=== PATIENT | female | born 1950 | race Hispanic/Latino ===

== ENCOUNTER 2019-02-10 04:04 | Inpatient (IN) | payer MEDICARE, MEDICAID ==
[~2019-02-10] VITALS: Ht 170.2 cm; Wt 85.0 kg
[~2019-02-10 04:04] MED LIST: ATIVAN2 MG ORAL; PHENERGAN25 M1 ORAL
[2019-02-10] MEDS ORDERED: Solu-MEDROL 125mg Inj IVP ONE (04:15)
[2019-02-10] MEDS: Ipratropium 0.02% Inh Soln 2.5ml UD HHN SCH ×2 (04:20→04:36)
[2019-02-10] MEDS: Albuterol ud Inhalation HHN SCH ×2 (04:20→04:36)
[2019-02-10 04:36] VITALS: BP 107/76
--- NOTE | 2019-02-10 04:39 | NUR ---
ED Nurse Note: Emily NIEVES from home with complaints of being found on the [place]gers by in respiratory distress. patient arrived on no rebreather. and was placed on BIpap upon arrival. Settiings: 15 back up at 16 on 50% FiO2. Labs drawn via line started by LAFD at right AC 20G. NS fluid running wide open. Vital signs stable. will continue to monitor.
[2019-02-10 04:41] LABS: BASOPHILS % (AUTO) 1.1 % (0.0-2.0); EOSINOPHILS % (AUTO) 1.6 % (0.0-3.0); HEMATOCRIT 47.3 % (37.0-47.0); LYMPHOCYTES % (AUTO) 49.3 % (20.0-45.0); MEAN CORPUSCULAR VOLUME 90 FL (80-99); MONOCYTES % (AUTO) 3.8 % (1.0-10.0); NEUTROPHILS % (AUTO) 44.3 % (45.0-75.0); PLATELET COUNT 181 K/UL (150-450); RED BLOOD COUNT 5.25 M/UL (4.20-5.40); RED CELL DISTRIBUTION WIDTH 13.3 % (11.6-14.8); WHITE BLOOD COUNT 9.9 K/UL (4.8-10.8)
[2019-02-10 04:54] LABS: ANION GAP 15 mmol/L (5-15); BLOOD UREA NITROGEN 25 mg/dL (7-18); CALCIUM 9.1 MG/DL (8.5-10.1); CARBON DIOXIDE 21 MMOL/L (21-32); CHLORIDE 109 MMOL/L (98-107); CREATININE 1.5 MG/DL (0.55-1.30); POTASSIUM 3.5 MMOL/L (3.5-5.1); SODIUM 145 MMOL/L (136-145)
--- NOTE | 2019-02-10 05:00 | NUR ---
ED Nurse Note: Patient was taken off BIpap per request.
[2019-02-10 05:20] LABS: ALANINE AMINOTRANSFERASE 20 U/L (12-78); ALBUMIN/GLOBULIN RATIO 0.9 (1.0-2.7); ALKALINE PHOSPHATASE 101 U/L (46-116); ASPARTATE AMINO TRANSFERASE 37 U/L (15-37); BILIRUBIN,TOTAL 0.2 MG/DL (0.2-1.0); CKMB 10.2 NG/ML (0.0-3.6); CREATINE KINASE 135 U/L (26-308)
--- NOTE | 2019-02-10 05:26 | NUR ---
ED Nurse Note: Patient began to get upset regarding lab findings. Patient desaturated to 81% and was re-placed on BiPAP.
[2019-02-10] MEDS ORDERED: Heparin 25,000u/D5W 500ml 500 ML IV SCH ×2 (06:00→08:55)
[2019-02-10] MEDS ORDERED: Heparin 5000 units/ml inj IV ONE (06:00)
--- NOTE | 2019-02-10 06:10 | NUR ---
ED Nurse Note: Patient exhibited sign of bradycardia and became symptomatic. Code called at 0611 and compressions started, pulse was 36 and last BP was 98/72. First epi was pushed at 0618 while patient was being bagged respirated. Patient was intubated at 0622. Atropine was given at 0618 and another round of epi was given at 0619. Compressions stopped at 0620 because of return of pulse at 93. Alternative line started at left AC 20G . ROSC achieved and fluids resumed. vital signs recorded. Code fully documented.
--- NOTE | 2019-02-10 06:12 | NUR ---
RESPIRATORY NOTE: Patient coded at 0612, assisted with providing rescue breaths with ambubag. Assisted with intubation shortly after. 7.5 ETT, 23 cm at the lip, and secured with anchorfast. Pt was then placed on ventilator with settings AC/VC 16, VT 500, PEEP +5, 50% FiO2. Pt began to desaturate, increased FiO2 to 70%. Vent was plugged in red outlet. Alarms on and audible. Will continue to monitor pt progress.
[2019-02-10 06:23] VITALS: BP_SYST 151; BP_SYST 158; BP_DIAS 108; BP_DIAS 112
--- NOTE | 2019-02-10 06:27 | Emergency Room Report ---
History of Present Illness General Chief Complaint: Dyspnea/Respdistress Source: EMS (Fitz Goyal MD) Present Illness HPI 68-year-old female presents ED for evaluation. Brought in by EMS for respiratory distress. called 911 because patient appears short of breath tonight. Per EMS patient had crackles in both lungs and was hypoxic. Was started on CPAP. Patient unable to provide any history at this time. is a poor historian. No known medical problems or medications. No reported chest pain or fever. No other aggravating relieving factors. No other associated symptoms. (Fitz Goyal MD) Allergies: Coded Allergies: UNABLE TO ASSESS (Unverified , 02/10/19) Patient History Past Medical History: psych hx Past Surgical History: none Pertinent Family History: none Social History: Denies: smoking, alcohol use, drug use Now: No Immunizations: UTD Reviewed Nursing Documentation: PMH: Agreed; PSxH: Agreed (Fitz Goyal MD) Nursing Documentation-PMH Past Medical History: Deferred Hx Neurological Problems: Yes (Fitz Goyal MD) Review of Systems All Other Systems: limited (Fitz Goyal MD) Physical Exam Vital Signs Date Time Temp Pulse Resp B/P (MAP) Pulse Ox O2 Delivery O2 Flow Rate FiO2 02/10/19 03:58 97.5 135 22 100 Bi-pap 02/10/19 04:01 50 02/10/19 04:36 107/76 Sp02 EP Interpretation: reviewed, normal General Appearance: GCS 15, non-toxic, moderate distress, lethargic Head: normocephalic, atraumatic Eyes: bilateral eye normal inspection, bilateral eye PERRL ENT: hearing grossly normal, normal pharynx, no angioedema, normal voice Neck: full range of motion, supple/symm/no masses Respiratory: chest non-tender, accessory muscle use, crackles, wheezing Cardiovascular #1: no edema, tachycardia Cardiovascular #2: 2+ carotid (R), 2+ carotid (L), 2+ radial (R), 2+ radial (L) , 2+ dorsalis pedis (R), 2+ dorsalis pedis (L) Gastrointestinal: normal bowel sounds, non tender, soft, non-distended, no guarding, no rebound Rectal: deferred Genitourinary: normal inspection, no CVA tenderness Musculoskeletal: back normal, gait/station normal, normal range of motion, non- tender Neurologic: other - lethargic Psychiatric: other - lethargic Reflexes: 3+ bicep (R), 3+ bicep (L), 3+ tricep (R), 3+ tricep (L), 3+ knee (R) , 3+ knee (L) Skin: normal color, no rash, warm/dry, well hydrated Lymphatic: no adenopathy (Fitz Goyal MD) Procedures Critical Care Time Critical Care Time i. I feel this is a highly complex case requiring extensive working including EKG/Rhythm strip, Xray/CT/US, Blood/urine lab work, repeat exams while in ED, and administration of strong opiates/narcotics for pain control, admission to hospital or close patient follow up. Total time: 60 min bedside evaluation and treatment excludes procedures (EKG). Reason for critical care: hypoxia. pulmonary edema. high lactic acid. elevated troponin Possible complications: hypotension, hypertension, MN, shock, arrhythmias, metabolic acidosis, end organ damage, respiratory failure. Interventions: labs, IVFS, EKG, CXR, BIPAP, nebs, ABG. antibiotics. heparin. aspirin. Course: Patient presenting in respiratory distress. Started on BiPAP been nebs. Chest x-ray shows pulmonary edema. Lactic acid 7.9. No white count. No fever. Troponin 1.9. Patient denies chest pain. EKG shows sinus tachycardia. no ST elevations. patient took off her BIAP stating she has chest pain. before repeat EKG patient lost pulse. compressions started. patient intubated. after epinephrine patient regained pulse. repeat EKG shows no ST elevations. aspirin given. heparin given. Consultations: nursing staff, EMS, family Performed by: Dr Goyal Tolerated well condition = critical j. because of unstable vital signs this patient had a condition that could potentially threaten life or limb. I feel this is a critical patient who required my full attention while patient was considered critical. Total Critical Care Time excluding procedures was greater than 60 minutes (Fitz Goyal MD) Intubation Intubation : Consent: Emergent Time of Intubation: 06:20 Intubation Method: orotracheal Tube Size (cm): 7.5 Breath Sounds after Intubation: equal Intubation Complications: no complications Attempts: One Patient Tolerated: Well Complications: None (Yair Naylor MD) Medical Decision Making Diagnostic Impression: Primary Impression: Respiratory distress Additional Impressions: NSTEMI (non-ST elevated myocardial infarction) Pulmonary edema Qualified Codes: J81.0 - Acute pulmonary edema ER Course Hospital Course 68-year-old female presents with shortness of breath Differential diagnoses include: MN/unstable angina, contusion, muscle strain, PTX, rib fracture Clinical course Patient placed on stretcher. After initial history and physical I ordered BiPAP , labs, EKG, chest x-ray, ABG labs reviewed- no leukocytosis,hb/hct stable, BUN/Cr elevated, trop 1.9, BNP > 5000, ABG - acidosis noted. However not respiratory with normal CO2 EKG- sinus tachycardia, no ST elevations Chest x-ray- pulmonary edema Patient denied chest pain. Patient tolerating BiPAP for some time. Patient ultimately pulled off her mask stating that she is now having chest pain. Before EKG could be repeated patient became bradycardic and unresponsive. Asystole. Chest compressions started. Patient intubated. Epinephrine given. Patient regained pulse. Repeat EKG also shows no ST elevations. Heparin bolus and drip administered. Aspirin given. Case discussed with Dr. Zabala and he agreed to accept the patient to his service for further care and support I. I feel this is a highly complex case requiring extensive working including EKG/Rhythm strip, Xray/CT/US, Blood/urine lab work, repeat exams while in ED, and administration of strong opiates/narcotics for pain control, admission to hospital or close patient follow up. Diagnosis - NSTEMI, respiratory disterss, pulmonary edema admitted to ICU in critical condition Labs Test 02/10/19 04:07 02/10/19 04:10 02/10/19 04:35 Arterial Blood pH 7.232 (7.350-7.450) Arterial Blood Partial Pressure CO2 47.6 mmHg (35.0-45.0) Arterial Blood Partial Pressure O2 235.8 mmHg (75.0-100.0) Arterial Blood HCO3 19.6 mmol/L (22.0-26.0) Arterial Blood Oxygen Saturation 99.1 % (95-100) Arterial Blood Base Excess -8.0 (-2-2) Jameson Test Positive White Blood Count 9.9 K/UL (4.8-10.8) Red Blood Count 5.25 M/UL (4.20-5.40) Hemoglobin 15.0 G/DL (12.0-16.0) Hematocrit 47.3 % (37.0-47.0) Mean Corpuscular Volume 90 FL (80-99) Mean Corpuscular Hemoglobin 28.5 PG (27.0-31.0) Mean Corpuscular Hemoglobin Concent 31.6 G/DL (32.0-36.0) Red Cell Distribution Width 13.3 % (11.6-14.8) Platelet Count 181 K/UL (150-450) Mean Platelet Volume 7.7 FL (6.5-10.1) Neutrophils (%) (Auto) 44.3 % (45.0-75.0) Lymphocytes (%) (Auto) 49.3 % (20.0-45.0) Monocytes (%) (Auto) 3.8 % (1.0-10.0) Eosinophils (%) (Auto) 1.6 % (0.0-3.0) Basophils (%) (Auto) 1.1 % (0.0-2.0) Sodium Level 145 MMOL/L (136-145) Potassium Level 3.5 MMOL/L (3.5-5.1) Chloride Level 109 MMOL/L (98-107) Carbon Dioxide Level 21 MMOL/L (21-32) Anion Gap 15 mmol/L (5-15) Blood Urea Nitrogen 25 mg/dL (7-18) Creatinine 1.5 MG/DL (0.55-1.30) Estimat Glomerular Filtration Rate 34.4 mL/min (>60) Glucose Level 274 MG/DL (74-106) Lactic Acid Level 7.90 mmol/L (0.4-2.0) Calcium Level 9.1 MG/DL (8.5-10.1) Total Bilirubin 0.2 MG/DL (0.2-1.0) Aspartate Amino Transf (AST/SGOT) 37 U/L (15-37) Alanine Aminotransferase (ALT/SGPT) 20 U/L (12-78) Alkaline Phosphatase 101 U/L (46-116) Total Creatine Kinase 135 U/L (26-308) Creatine Kinase MB 10.2 NG/ML (0.0-3.6) Creatine Kinase MB Relative Index 7.5 Troponin I 1.961 ng/mL (0.000-0.056) Pro-B-Type Natriuretic Peptide 5595 pg/mL (0-125) Total Protein 6.4 G/DL (6.4-8.2) Albumin 3.0 G/DL (3.4-5.0) Globulin 3.4 g/dL Albumin/Globulin Ratio 0.9 (1.0-2.7) Prothrombin Time 10.5 SEC (9.30-11.50) Prothromb Time International Ratio 1.0 (0.9-1.1) Activated Partial Thromboplast Time 25 SEC (23-33) (Fitz Goyal MD) EKG Diagnostic Results Rate: tachycardiac Rhythm: NSR ST Segments: no acute changes ASA given to the pt in ED: Yes (Fitz Goyal MD) Rhythm Strip Diag. Results EP Interpretation: yes Rhythm: no PVC's, no ectopy (Fitz Goyal MD) Chest X-Ray Diagnostic Results Chest X-Ray Diagnostic Results : Chest X-Ray Ordered: Yes # of Views/Limited/Complete: 1 View Indication: Shortness of Breath EP Interpretation: Yes Interpretation: no pneumothorax, other - pulmonary edema Impression: Other - pulmonary edema (Fitz Goyal MD) Last Vital Signs Date Time Temp Pulse Resp B/P (MAP) Pulse Ox O2 Delivery O2 Flow Rate FiO2 02/10/19 04:36 97.6 103 22 107/76 100 Bi-pap 50 Status: improved (Fitz Goyal MD) Disposition: ADMITTED INPATIENT Condition: Critical Referrals: NOT CHOSEN IPA/,REFERRING (PCP) Fitz Goyal MD February 10, 2019 06:27 Yair Naylor MD February 10, 2019 06:32
[2019-02-10] MEDS ORDERED: Etomidate 40mg/20ml Inj IV ONE ×2 (06:45→14:37)
--- NOTE | 2019-02-10 07:01 | NUR ---
RESPIRATORY NOTE: Patient received mechanically ventilated on PB 840 with current ordered vent settings. Patient is orally intubated with 7.5 ETT tube and 23cm at the lip line that is secured with an anchor fast. Patient presents with clear/diminished breath sounds and small amount of white/clear/pink secretions suctioned with no adverse reaction. Vent alarms are functional and audible. There is an ambu bag available at the bedside and the vent is connected to a red outlet. Will continue to monitor.
--- NOTE | 2019-02-10 07:14 | NUR ---
HAND-OFF: Report given to Jody RAMIREZ.
--- NOTE | 2019-02-10 07:15 | NUR ---
ED Nurse Note: cut off the 600mg of ASA suppository. Winessed by Hanna RAMIREZ
--- NOTE | 2019-02-10 07:21 | NUR ---
ED Nurse Note: current bp of 81/57. Notified Dr. Naylor
[2019-02-10 07:26] VITALS: BP 84/65
[2019-02-10] MEDS ORDERED: LORazepam Inj 2mg/ml 1ml IV ONE (07:30)
--- NOTE | 2019-02-10 07:42 | NUR ---
ED Nurse Note: withdrew lactic acid reflex
--- NOTE | 2019-02-10 07:44 | NUR ---
NURSE NOTES: called ER to get report. nurse will call back, attending to pt at this time.
--- NOTE | 2019-02-10 07:51 | NUR ---
NURSE NOTES: RECEIVED REPORT FROM MARTELL RN, ER. SBAR, ALL QUESTIONS ANSWERED. RESPIRATORY DISTRESS, INTUBATED, HEP DRIP 12U/KG/MIN, TROPIN 1.96,LACTIC ACID 7.9, ATIVAN GIVEN , IN RESTRAINTS. AWAITING ARRIVAL OF OPT TP [id number], ADMITTING MD Sheron SCOTT
--- NOTE | 2019-02-10 07:51 | NUR ---
ED Nurse Note: Telephone report given to ASHLEY Huang
--- NOTE | 2019-02-10 08:15 | NUR ---
NURSE NOTES: Received pt via gurney. very drowsy, awakens to name and light shaking. BP 105/92, HR 107, RR 24, 02SAT 100%. Sinus tachy on surveillance monitor. ETT to vent, settings: AC 16, TV 500, FiO2 70%, P5. O2 sat 100%. NG-tube in RT nares. clamped, draining brown secretions. per BIT GRINDER henry attempt but not placed due to obstruction. LT AC 20G, RT HAND 20G. HEP DRIP RUNNING AT 12U/KG/MIN, 500ML BOLUS running. skin intact. Bed in lowest position. Side rails up x3. Call light within reach. standard precautions in place. Will continue to implement plan of care.
--- NOTE | 2019-02-10 08:30 | NUR ---
ED Nurse Note: Pt. went up to ICU with systolic BP of 105
--- NOTE | 2019-02-10 08:31 | NUR ---
ED Nurse Note: pt. went up with with planning lead
--- NOTE | 2019-02-10 08:58 | NUR ---
NURSE NOTES: called MD Sheron Zabala for additional admission orders. Awaiting call back. BP 81/57, HR 105. rectal temp 100.8. pt responsive to name. no c/o pain. intubated ETT
--- NOTE | 2019-02-10 10:15 | NUR ---
NURSE NOTES: MD MAI HERE TO SEE PT. WILL PLACE ORDERS. ORDER NS BOLUS 500, EKG AND 2D ECHO.
--- NOTE | 2019-02-10 10:40 | NUR ---
NURSE NOTES: MD MAI OK TO HOLD KDUR, LASIX AND LOPRESSOR, WILL RE-EVAULATE ORDERS DUE TO CHANGE IN PT CONDITION.
[2019-02-10 11:00] VITALS: BP 80/59
[2019-02-10] MEDS ORDERED: Metoprolol Tartrate 12.5mg TAB NG SCH (11:00)
--- NOTE | 2019-02-10 11:01 | Consultation ---
Consult Note Consult Note Cardiology consult Full note dictated # [id number] Lyndsay Biswas MD February 10, 2019 11:01
--- NOTE | 2019-02-10 11:21 | NUR ---
NURSE NOTES: per MD stat verbal order NS bolus given 500ml, BP Lt upper arm 74/52. pt awake alert, responsive.
--- NOTE | 2019-02-10 11:40 | NUR ---
NURSE NOTES: MD SCOTT HERE TO SEE PT. PLACED ORDER FOR CENTRAL LINE, PREP FOR PRESSOR. SPOKE WITH FAMILY MEMBER ABOUT CONDITION AND POSSIBLE TRANSFER TO [facility]
--- NOTE | 2019-02-10 11:49 | Consultation ---
Consult Note Assessment/Plan Cardiology - addendum 11:45 am - See initial consult for details of pt's presentation and ER course. Pt has now developed hypotension ( prior to meds being given) SPB 70-80s. EKG shows ST depression v3-v6, T inv v3 ECHO shows severe LV dysfunction, w/ anterior, septal hypo and apical akinesis, ef < 20% Levophed to be started for bp support. d/w Chioma and Sagrario. Pt to be transferred to [facility] for emergent cor angiogram, poss revascularization Lyndsay Biswas MD February 10, 2019 11:49
--- NOTE | 2019-02-10 11:55 | History & Physical ---
History and Physical History & Physicial HP dictated # [id number] Serge Zabala MD February 10, 2019 11:54
[2019-02-10] MEDS ORDERED: Lidocaine 1% Plain 30 ml INJ ONE (12:45)
--- NOTE | 2019-02-10 12:55 | NUR ---
NURSE NOTES: MD ARIAS HERE TO PLACE CENTRAL LINE. PLACEMENT CONFIRMED BY XRAY. PT RESTING IN BED. A/OX4. NO C/O PAIN. WILL CONTINUE TO MONITOR.
--- NOTE | 2019-02-10 13:22 | NUR ---
CASE MANAGEMENT: REVIEW 68Y/F BIBA FROM HOME CC: RESP DISTRESS SI: RESP DISTRESS . NSTEMI . PULMONARY EDEMA T 97.5 HR 135 RR 28 BP 80/59 SAT 97% MECH VENT FIO2 70 ABG: PH 9.232 PCO2 47.6 PO2 235.8 HCO3 19.6 IS: NS IVF BOLUS X1 SOLU MEDROL IV X1 ATROVENT HHN X1 ALBUTEROL HHN X1 LEVOFLOXACIN IV X1 HEPARIN IV X1 PATIENT ADMITTED TO ICU 02/10/2019 DCP: PATIENT IS FROM HOME
--- NOTE | 2019-02-10 13:25 | NUR ---
NURSE NOTES: report given top [facility] here to transport pt. Addendum: 02/10/19 at 1546 by Jazmyn Sauceda RN wrong time
--- NOTE | 2019-02-10 13:31 | Consultation ---
History of Present Illness General Date patient seen: February 10, 2019 Reason for Hospitalization: Dyspnea/Respdistress Present Illness HPI 68F presented to ED with respiratory distress and hypoxia. Admitted to ICU for care and management. Acute MO. Intubated. comfortable. hypotensive. cardiology note noted. plans for transfer to high level of care for possible cardiac cath. unstable hypotensive requiring pressors. venous access needed. surgery called to assist with care and management. patient seen, chart reviewed , patient examined. Allergies: Coded Allergies: UNABLE TO ASSESS (Unverified , 02/10/19) Medication History Scheduled Lorazepam* (Ativan*), 2 MG ORAL BEDTIME Promethazine Hcl* (Phenergan*), 25 MG ORAL Q6H Patient History Limited by: medical condition History Provided By: Medical Record, PMD Healthcare decision maker Resuscitation status Advanced Directive on File Past Medical/Surgical History Past Medical/Surgical History: (1) Respiratory distress (2) NSTEMI (non-ST elevated myocardial infarction) (3) Pulmonary edema Review of Systems Review of Symptoms cannot obtain given medical condition Physical Exam Physical Exam General appearance: alert, cooperative, appears stated age Head: Normocephalic, without obvious abnormality, atraumatic Eyes: conjunctivae/corneas clear. PERRL, EOM's intact. Fundi benign Throat: Lips, mucosa, and tongue normal. Teeth and gums normal Neck: supple, symmetrical, trachea midline, no adenopathy, thyroid: not enlarged, symmetric, no tenderness/mass/nodules, no carotid bruit and no JVD Lungs: clear to auscultation bilaterally; intubated on vent Heart: irregular Abdomen: soft, non-tender. Bowel sounds normal. No masses, no organomegaly Extremities: extremities normal, atraumatic, no cyanosis or edema Pulses: 2+ and symmetric Skin: Skin color, texture, turgor normal. No rashes or lesions Neurologic: Grossly normal Last 24 Hour Vital Signs Date Time Temp Pulse Resp B/P (MAP) Pulse Ox O2 Delivery O2 Flow Rate FiO2 02/10/19 12:45 98 25 50 02/10/19 11:26 97 21 50 02/10/19 11:00 101 80/59 02/10/19 09:25 103 23 70 02/10/19 08:33 97.6 94 24 84/65 97 Endotracheal Tube 70 02/10/19 07:41 70 02/10/19 07:26 97.6 94 24 84/65 97 Endotracheal Tube 70 02/10/19 06:55 115 24 70 02/10/19 06:23 97.6 147 23 151/108 97 Endotracheal Tube 50 02/10/19 06:23 97.6 151 17 158/112 94 Endotracheal Tube 50 02/10/19 06:12 113 24 70 02/10/19 04:36 97.6 103 22 107/76 100 Bi-pap 50 02/10/19 04:36 102 17 100 Bi-pap 50 02/10/19 04:36 93 21 Bi-pap 50 02/10/19 04:35 101 20 100 Bi-pap 50 02/10/19 04:20 93 21 100 Bi-pap 50 02/10/19 04:01 105 28 100 Facial 50 02/10/19 03:58 97.5 135 22 100 Bi-pap Intake and Output 02/09/19 02/10/19 19:00 07:00 Intake Total 1000 ml Balance 1000 ml Intake IV Total 1000 ml Laboratory Tests Test 02/10/19 04:07 02/10/19 04:10 02/10/19 04:35 02/10/19 07:40 Arterial Blood pH 7.232 (7.350-7.450) Arterial Blood Partial Pressure CO2 47.6 mmHg (35.0-45.0) H Arterial Blood Partial Pressure O2 235.8 mmHg (75.0-100.0) H Arterial Blood HCO3 19.6 mmol/L (22.0-26.0) L Arterial Blood Oxygen Saturation 99.1 % (95-100) Arterial Blood Base Excess -8.0 (-2-2) L Jameson Test Positive White Blood Count 9.9 K/UL (4.8-10.8) Red Blood Count 5.25 M/UL (4.20-5.40) Hemoglobin 15.0 G/DL (12.0-16.0) Hematocrit 47.3 % (37.0-47.0) H Mean Corpuscular Volume 90 FL (80-99) Mean Corpuscular Hemoglobin 28.5 PG (27.0-31.0) Mean Corpuscular Hemoglobin Concent 31.6 G/DL (32.0-36.0) L Red Cell Distribution Width 13.3 % (11.6-14.8) Platelet Count 181 K/UL (150-450) Mean Platelet Volume 7.7 FL (6.5-10.1) Neutrophils (%) (Auto) 44.3 % (45.0-75.0) L Lymphocytes (%) (Auto) 49.3 % (20.0-45.0) H Monocytes (%) (Auto) 3.8 % (1.0-10.0) Eosinophils (%) (Auto) 1.6 % (0.0-3.0) Basophils (%) (Auto) 1.1 % (0.0-2.0) Sodium Level 145 MMOL/L (136-145) Potassium Level 3.5 MMOL/L (3.5-5.1) Chloride Level 109 MMOL/L (98-107) H Carbon Dioxide Level 21 MMOL/L (21-32) Anion Gap 15 mmol/L (5-15) Blood Urea Nitrogen 25 mg/dL (7-18) H Creatinine 1.5 MG/DL (0.55-1.30) H Estimat Glomerular Filtration Rate 34.4 mL/min (>60) Glucose Level 274 MG/DL (74-106) H Lactic Acid Level 7.90 mmol/L (0.4-2.0) H 8.00 mmol/L (0.66-2.22) H Calcium Level 9.1 MG/DL (8.5-10.1) Total Bilirubin 0.2 MG/DL (0.2-1.0) Aspartate Amino Transf (AST/SGOT) 37 U/L (15-37) Alanine Aminotransferase (ALT/SGPT) 20 U/L (12-78) Alkaline Phosphatase 101 U/L (46-116) Total Creatine Kinase 135 U/L (26-308) Creatine Kinase MB 10.2 NG/ML (0.0-3.6) H Creatine Kinase MB Relative Index 7.5 Troponin I 1.961 ng/mL (0.000-0.056) Pro-B-Type Natriuretic Peptide 5595 pg/mL (0-125) H Total Protein 6.4 G/DL (6.4-8.2) Albumin 3.0 G/DL (3.4-5.0) L Globulin 3.4 g/dL Albumin/Globulin Ratio 0.9 (1.0-2.7) L Prothrombin Time 10.5 SEC (9.30-11.50) Prothromb Time International Ratio 1.0 (0.9-1.1) Activated Partial Thromboplast Time 25 SEC (23-33) Test 02/10/19 10:00 Arterial Blood pH 7.220 (7.350-7.450) Arterial Blood Partial Pressure CO2 31.5 mmHg (35.0-45.0) L Arterial Blood Partial Pressure O2 133.9 mmHg (75.0-100.0) H Arterial Blood HCO3 12.6 mmol/L (22.0-26.0) *L Arterial Blood Oxygen Saturation 97.8 % (95-100) Arterial Blood Base Excess -13.8 (-2-2) *L Jameson Test Positive Height (Feet): 5 Height (Inches): 7.00 Weight (Pounds): 180 Medications Current Medications Medications (Trade) Dose Ordered Sig/Kenisha Route PRN Reason Start Time Stop Time Status Last Admin Dose Admin Aspirin (ASA) 325 mg DAILY NG 02/11/19 09:00 03/13/19 08:59 Atorvastatin Calcium (Lipitor) 20 mg BEDTIME NG 02/10/19 21:00 03/12/19 20:59 Heparin Sodium/ Dextrose 500 ml @ 20.616 mls/ hr ADJUST PER PROTOCOL IV 02/10/19 08:55 03/12/19 08:54 02/10/19 09:18 Metoprolol Tartrate (Lopressor) 12.5 mg Q12HR NG 02/10/19 11:00 03/12/19 10:59 Assessment/Plan Problem List: (1) Respiratory distress ICD Codes: R06.03 - Acute respiratory distress SNOMED: 069264249 (2) NSTEMI (non-ST elevated myocardial infarction) Assessment & Plan: Urgent venous access needed consent obtained from patient left IJ central line placed see note. okay for transfer thank you ICD Codes: I21.4 - Non-ST elevation (NSTEMI) myocardial infarction SNOMED: 26661237 (3) Pulmonary edema ICD Codes: J81.1 - Chronic pulmonary edema SNOMED: 94314497 Qualifiers: Qualified Codes: J81.0 - Acute pulmonary edema Bradley Crump February 10, 2019 13:31
--- NOTE | 2019-02-10 13:34 | Operative Note - PDOC ---
Operative Note Operative Note Date of Operation/Procedure: February 10, 2019 Pre-op Diagnosis: acute NE needs venous access for pressors critically ill respiratory distress Procedure: left internal jugular central venous catheter insertion Post-op Diagnosis: same as pre-op Surgeon: maryuri Anesthesia: local Specimen: none Complications: none Condition: unstable Estimated Blood Loss: minimal Drains: none Implant(s) used?: No Indications for Procedure please refer to consult note Description of Procedure time out take. left neck prepped and draped in standard surgical fashion. ultrasound used and vein noted to be patent without issues. local lidocaine infiltrated. finder needle used and left IJ cannulated on first stick using ultrasound. guide wire placed over needled and needle removed. ultrasound noted guidewire in correct position. small skin incision made. dilator used. triple lumen catheter placed over guide wire. wire removed and discarded. all ports flushed and aspirated well. line sutured in place and dressings applied. cxr reviewed and line in good positioning. okay for use Bradley Crump February 10, 2019 13:34
--- NOTE | 2019-02-10 13:47 | NUR ---
HAND-OFF: Report given to jhon RAMIREZ, [facility] laboratory inspector.report was given using SBAR. All questions answered. pt vss.[facility] TO MANAGER OF RECRUITING.
--- NOTE | 2019-02-10 13:56 | NUR ---
NURSE NOTES: report given top [facility] here to transport pt.
--- NOTE | 2019-02-10 13:59 | NUR ---
NURSE NOTES: called [phone] per pt, to inform of transfer to [facility] lab. left message to call regarding transfer.
[2019-02-10] MEDS ORDERED: Calcium Chloride 10% 10ml carpuject IVP ONE (14:37)
[2019-02-10] MEDS ORDERED: Atropine Inj 1mg/10ml Syr ONE (14:37)
[2019-02-10] MEDS ORDERED: Sodium Bicarbonate 50ml Carp ONE (14:37)
--- NOTE | 2019-02-10 18:15 | History and Physical Report ---
DATE OF ADMISSION: 02/10/2019 CHIEF COMPLAINT: Shortness of breath. HISTORY OF PRESENT ILLNESS: This is a 68-year-old female, who was in her usual state of health. Apparently, she was at home and was complaining of shortness of breath. The was present. Paramedics were called. The patient became confused and still had problem breathing. She was brought into the emergency room. Initially, she was diagnosed with pulmonary edema and they put her on BiPAP; however, the patient had a Code Blue and reportedly became asystolic; however, she could be resuscitated. She was intubated and admitted to intensive care unit. Currently, she is awake and alert and follows commands. They history was obtained from the chart, also talking to the . According to him, the patient did not complain of chest pain, but apparently the patient herself has told the ER that she did have some chest pain. She did not have any previous history of heart problems. She is not diabetic and has no history of hypertension. She is a secondhand smoker because the smokes also in the house. PAST MEDICAL HISTORY: Includes also previous history of syncope with unknown workup. ALLERGIES: No known drug allergies. SOCIAL HISTORY: No history of smoking; however, secondhand smoker. No history of alcohol abuse. REVIEW OF SYSTEMS: As above. PHYSICAL EXAMINATION: GENERAL: The patient is an elderly female, in no acute distress. VITAL SIGNS: Blood pressure is 84/62, pulse 99, temperature in ER was 97.5 with respiratory rate of 22. HEENT: [place] conjunctivae. Anicteric sclerae. The patient is orally intubated. NECK: Supple. LUNGS: Coarse breath sounds bilaterally. HEART: S1 and S2 with distant heart sounds. ABDOMEN: Soft, nontender. EXTREMITIES: Bilateral pedal edema. LABORATORY FINDINGS: The CBC shows a WBC of 9900, hematocrit 47.3, hemoglobin is 15, platelets 181,000. Chemistry panel shows a sodium 145, potassium 3.5, chloride 109, BUN is 25, creatinine 1.5, blood sugar is 274. Lactic acid is 8. Troponin was 1.96. ProBNP was 5595. Albumin is 3. EKG shows a sinus tachycardia, rate of 107. There is ST elevation in V1 to V2 and ST depression in V3 to V6 consistent with acute MD. ASSESSMENT: This is a 68-year-old female, who was admitted with shortness of breath, possibly some chest pain, then she was diagnosed with pulmonary edema and also had a Code Blue in the ER. She was resuscitated successfully. Currently intubated. EKG and troponin consistent with acute MD. She is hypotensive. They just did an echocardiogram at bedside. Ejection fraction of 20% and the anterior wall is not moving. Likely, this patient has an infarct in the LAD distribution. The patient has renal failure with unknown baseline. It may be cardiorenal or the patient may have had chronic kidney disease. The lactic acid is elevated, so sepsis needs to be ruled out although she could also have just cardiogenic shock. PLAN: The patient hopefully will get a central line soon and then we will start the patient on Levophed to maintain her blood pressure. She is already started on IV heparin. Aspirin will be given. The patient remains intubated with full ventilatory support. Her troponins will be followed. The patient was put in the transfer list to [facility] [place] [facility] for cardiac catheterization by Dr. Waters. Case was discussed extensively with Dr. Biswas, manager cancer. Serge Zabala M.D. DR: LOI JOB#: [id number] CC:
--- NOTE | 2019-02-10 18:45 | Consultation ---
DATE OF CONSULTATION: 02/10/2019 CARDIOLOGY CONSULTATION: This is being done as coverage for Dr. Martinez. CONSULTING PHYSICIAN: Lyndsay Biswas M.D. REFERRING PHYSICIAN: Serge Zabala M.D. REASON FOR CONSULT: Myocardial infarction, respiratory failure, and status post cardiopulmonary arrest. HISTORY OF PRESENT ILLNESS: History is obtained from the chart, the patient's , and limited history from the patient who is currently intubated, but alert. The patient is a 68-year-old woman with a history of hypertension. No previous history of cardiac disease who awoke at about 3 o'clock this morning with severe shortness of breath. She also had chest pain. The paramedics were called and she was brought to the emergency room for further evaluation. Initially, her pulse was reported at 135, blood pressure 107/76, respiratory rate 22. Per the emergency room notes, the patient was in respiratory distress and started on BiPAP. Troponin was elevated at 1.9. EKG showed no ST elevation. The patient complained of chest pain in the emergency room and subsequently suffered an asystolic cardiac arrest. CPR was performed. The patient was intubated and also received intravenous epinephrine. She was successfully resuscitated. She was transferred to the intensive care unit for further treatment. She is currently alert on the ventilator. She has no current complaints of chest pain or other pain. Cardiac risk factors include hypertension and obesity. She is a nonsmoker. Has no history of diabetes. Has no family history of premature coronary artery disease. She is unsure of her cholesterol level. MEDICATIONS: At home lorazepam 2 mg at bedtime, Phenergan 25 mg every 6 hours p.r.n. ALLERGIES: No known drug allergies. PAST MEDICAL HISTORY: As noted above. SOCIAL HISTORY: The patient is a nonsmoker. Has no history of alcohol abuse or drug use. PHYSICAL EXAMINATION: VITAL SIGNS: Pulse 103, regular, blood pressure 140/100, respirations 22, afebrile. GENERAL: Alert, obese, female on the ventilator. HEENT: Normocephalic, atraumatic. Pupils are equal, round, and reactive to light. NG tube and ET tubes in place. NECK: Supple. There is no jugular venous distention. Carotid pulses are 2+ without bruits. LUNGS: There are few expiratory wheezes. Good air movement. HEART: Distant heart sounds. Regular. Tachycardic S1, S2 with no murmur or S3. ABDOMEN: Soft, obese, and nontender. No palpable mass. EXTREMITIES: Trace pedal edema bilaterally. Distal pulses are 2+ bilaterally. LABORATORY AND DIAGNOSTIC DATA: Hemoglobin 15, white blood count 9900, platelets 181,000. Troponin 1.96. Lactic acid 7.9. Sodium 145, potassium 3.5, chloride 109, bicarbonate 21, BUN 25, creatinine 1.5. ProBNP 5595. EKG by paramedics show sinus tachycardia rate of 126 beats per minute with occasional premature ventricular complex, left ventricular hypertrophy, and left anterior hemiblock. Repeat EKG from 6:45 today shows sinus tachycardia, rate of 130, ST elevation 1 mm in V1, ST depression 1 mm in III, aVF, and [address]-depression in V4 through V6. Repeat EKG at 10:42 shows sinus rhythm, rate of [address] depression of 1 mm in III and aVF, 1 mm V4 through V6, and inverted T-waves in V3. Chest x-ray, initial chest x-ray, by report, shows unremarkable pulmonary vasculature and cardiac silhouette. Repeat EKG per notes shows pulmonary edema. However, images are not available for review. ASSESSMENT AND RECOMMENDATIONS: The patient is a 68-year-old woman with history of hypertension, who suffered an episode of severe dyspnea and chest pain at home. She presented to the emergency room and suffered a cardiopulmonary arrest, which appears to have been asystole in the setting of respiratory distress and hypoxia. She was successfully resuscitated with CPR, intubation, and 1 mg of intravenous epinephrine. She is currently normotensive to hypertensive, intubated, and tachycardic in the intensive care unit. Her troponin elevation and EKG findings are consistent with an acute non-ST elevation myocardial infarction. I would recommend continuing ventilator support. We will review chest x-ray images as soon as available. She has been started on intravenous heparin. We will start aspirin, statin, and beta-blockers. Diuretics will be given for treatment of pulmonary vascular congestion. Serial troponin levels and EKGs will be obtained. An echocardiogram will be obtained to evaluate left ventricular function and wall motion. She will need transfer for coronary angiography and possible revascularization. She will continue to be followed by Dr. Martinez. Lyndsay Biswas M.D. DR: JNAIE JOB#: [id number] CC:
[2019-02-10] MEDS ORDERED: Atorvastatin 20mg tab NG SCH (21:00)
--- NOTE | 2019-02-10 23:54 | Diagnostic Imaging Report ---
EXAM: XR Chest, 1 View CLINICAL HISTORY: SOB TECHNIQUE: Frontal view of the chest. COMPARISON: February 10, 2013 chest x-ray FINDINGS: Lungs: Interval development of pulmonary interstitial opacities compatible with pulmonary edema. Pleural space: Unremarkable. No pneumothorax. Heart: Unremarkable. No cardiomegaly. Mediastinum: Unremarkable. Bones/joints: Unremarkable. IMPRESSION: Interval development of pulmonary interstitial opacities compatible with pulmonary edema.
--- NOTE | 2019-02-10 23:54 | Diagnostic Imaging Report ---
EXAM: XR Chest, 1 View CLINICAL HISTORY: S/P INTUB TECHNIQUE: Frontal view of the chest. COMPARISON: No relevant prior studies available. FINDINGS: Lungs: Accentuation of interstitial markings and some groundglass opacities that could be from edema. Pleural space: Unremarkable. No pneumothorax. Heart: Prominent cardiomediastinal silhouette. Mediastinum: See above. Bones/joints: No acute fracture. Tubes, lines and devices: Endotracheal tube is approximately 3 cm above the anoop. Enteric tube is in the stomach. Other findings: Single view 02/10/19 at 1101. IMPRESSION: 1. Endotracheal tube is approximately 3 cm above the anoop. Enteric tube in stomach 2. Accentuation of interstitial markings and some groundglass opacities that could be from edema. There is a broader differential.
--- NOTE | 2019-02-10 23:54 | Diagnostic Imaging Report ---
EXAM: XR Chest, 1 View. CLINICAL HISTORY: TUBE PLACEMENT TECHNIQUE: Frontal view of the chest. COMPARISON: 02/10/19 at 0421 hrs. FINDINGS: Interval placement of endotracheal tube, with the tip 5 cm above the anoop. Interval placement of enteric tube with the tip below the GE junction. Interval worsening of perihilar interstitial opacities consistent with diffuse pulmonary edema. Cardiac silhouette is unchanged. No mediastinal shift. IMPRESSION: Interval placement of endotracheal and enteric tubes, both appropriately positioned. Interval worsening of diffuse pulmonary edema.
--- NOTE | 2019-02-11 11:51 | Diagnostic Imaging Report ---
Indication: Line placement Comparison: Earlier same day A single view chest radiograph was obtained. Findings: Left jugular line has been placed. The tip projects over the SVC. Other tubes and lines are satisfactory and stable. Pulmonary edema is a moderate to severe. IMPRESSION: Left jugular line in good position. No pneumothorax
--- NOTE | 2019-02-12 08:36 | Discharge Summary ---
Discharge Summary Discharge Summary _ DATE OF ADMISSION: 02/10/2019 DATE OF DISCHARGE: 02/10/2019 DISCHARGED BY: Dr. Zabala REASON FOR ADMISSION: 68 years old female with past medical history of hypertension, genital reconstructive surgery, presented to emergency room for respiratory distress. called paramedics because patient appeared to be short of breath. Per paramedics patient was hypoxic; bilateral crackles auscultated. Patient started on CPAP. No reported chest pain , no fevers .. Upon evaluation patient was tachycardic with heart rate of 135 , hypoxic, on BiPAP and tachypneic . ABG revealed acidosis with a pH of 7.23 PCO2 47 bicarb 19. Laboratory work-up revealed no leukocytosis , stable hemoglobin and hematocrit. BUN 25, creatinine 1.5. Next glucose 274 9. Troponin elevated 1.961. CK 125, CK-MB 10.2. EKG revealed sinus tachycardia no ST elevation Pro BNP 5595 albumin 3.0. Lactic acid 7.9 . Coagulation stable. Chest x-ray revealed development of pulmonary edema. While on BiPAP, patient suffered a cardiopulmonary arrest in emergency department , which appeared to be asystolic in the setting of respiratory distress and hypoxia. Patient was successfully resuscitated with CPR, orally intubated. NG tube was placed.. Chest x-ray confirmed correct placement of both endotracheal and nasogastric tube no pneumothorax Patient started on anticoagulation with heparin. Aspirin was given. Patient admitted to intensive care unit for further management CONSULTANTS: customer relations coordinator Dr. Cornelius surgery Dr. Crump [facility]SE: Patient admitted to ICU. Ventilator support and pulmonary toilet provided. Patient was continued on heparin drip. Patient was noted to be hypotensive. Surgeon seen and evaluated patient for central line placement patient due to poor venous access for possible pressor. Patient subsequently undergone placement of left internal jugular central venous catheter. Chest x-ray confirmed proper placement of central line. Serial troponin were ordered. Patient was placed on transfer list to [facility] for cardiac catheterization by Dr. Waters. Echocardiogram revealed ejection fraction of 15 to 20% with global left ventricular hypokinesis and apical akinesis. Moderate mitral regurgitation. Grade 2 diastolic dysfunction. Right ventricular systolic pressure of 40 consistent with a mild pulmonary hypertension. Per customer relations coordinator, troponin elevation and EKG findings were consistent with acute NSTEMI. Ventilator support continued. Patient was continued on aspirin, statin, beta-blockage and intravenous heparin. Diuretic provided for pulmonary edema with close monitoring of volumes and cardiorenal parameters. Patient subsequently was transferred via [facility] ambulance to [facility] for coronary angiogram and possible revascularization. FINAL DIAGNOSES: Status post cardiopulmonary arrest secondary to asystole , likely due to combination of pulmonary edema , NSTEMI and hypoxia Acute respiratory failure, requiring intubation Acute NSTEMI Hypotension Severe cardiomyopathy with EF 15-20% Pulmonary edema Renal failure , possibly cardiorenal versus chronic kidney disease Lactic acidosis DISCHARGE MEDICATIONS: List of Medication was sent to accepting facility DISCHARGE INSTRUCTIONS: Patient was transferred to [facility] for cardiac catheterization I have been assigned to dictate discharge summary for this account. I was not involved in the patient's management. Solange Bowles NP February 12, 2019 08:36
--- NOTE | 2019-02-12 14:46 | Cardiology Report ---
APPROVED REPORT EXAM: Two-dimensional and M-mode echocardiogram with Doppler and color Doppler. INDICATION OTHER M-Mode DIMENSIONS IVSd0.9 (0.7-1.1cm)Left Atrium (MM)3.0 (1.6-4.0cm) LVDd5.5 (3.5-5.6cm)Aortic Root3.0 (2.0-3.7cm) PWd0.7 (0.7-1.1cm)Aortic Cusp Exc.1.0 (1.5-2.0cm) IVSs1.2 cm LVDs4.9 (2.5-4.0cm) PWs0.8 cm Technically difficult study due to pts position. Mild left ventricular enlargement. Global left ventricular hypokinesis withdistal anterior wall and apical akinesis . Left ventricular ejection fraction estimated to be less than 15%%. No evidence of left ventricular hypertrophy . No evidence of pericardial effusion. Mild left atrial enlargement . Right cardiac chamber sizes are within normal limits. Aortic valve calcification with decreased cusp excursion c/w aortic stenosis. Thickened mitral valve leaflets with normal excursion. Mild mitral annulus and aortic root calcification. Pulmonic valve not well visualized. IVC at size 2.2 cm without physiologic collapse suggestive of increased RA pressure. A color flow and spectral Doppler study was performed and revealed: No aortic insufficiency . Peak aortic valve gradient of 12 mm Hg and a mean of 6 mmHg. Aortic valve area 0.8 cm2 calculated by continuity equation. Moderate mitral regurgitation. Mitral inflow velocities indicates possible pseudo normalization pattern implying moderately elevated left atrial pressure (Grade II ) Mild tricuspid regurgitation. Tricuspid systolic velocities suggests peak right ventricular systolic pressure of 40mmHg,consistent with mild pulmonary hypertension . Trace pulmonic regurgitation present .
--- NOTE | 2019-02-12 16:50 | NUR ---
*-* INSURANCE *-* ALL CLINICALS AND REVIEWS HAVE BEEN FAXED TO: [facility] ANAM:PETE P:[phone] F:[phone]
== END 2019-02-10 13:50 | DRG 196 ==
LOC: EDBD 04:04 → EMR 04:27 → 2W 04:32 → EDBEDREQ 05:41 → EDBEDREQSVC 06:29 → EDBEDREQ 06:40 → ICU 06:59
PROC: 05HN33Z Insertion of Infusion Device into Left Internal Jugular Vein, Percutaneous Approach (ICD-10-PCS; principal; 2019-02-10)
PROC: 5A1935Z Respiratory Ventilation, Less than 24 Consecutive Hours (ICD-10-PCS; 2019-02-10)
PROC: 0BH17EZ Insertion of Endotracheal Airway into Trachea, Via Natural or Artificial Opening (ICD-10-PCS; 2019-02-10)
PROC: 5A12012 Performance of Cardiac Output, Single, Manual (ICD-10-PCS; 2019-02-10)
DX: I46.9 Cardiac arrest, cause unspecified (principal); I21.4 Non-ST elevation (NSTEMI) myocardial infarction; J81.1 Chronic pulmonary edema; J96.01 Acute respiratory failure with hypoxia; I27.20 Pulmonary hypertension, unspecified; J81.0 Acute pulmonary edema; I95.9 Hypotension, unspecified; E87.2 Acidosis; I42.9 Cardiomyopathy, unspecified; I34.0 Nonrheumatic mitral (valve) insufficiency; I12.9 Hypertensive chronic kidney disease with stage 1 through stage 4 chronic kidney disease, or unspecified chronic kidney disease; N18.9 Chronic kidney disease, unspecified; Z77.22 Contact with and (suspected) exposure to environmental tobacco smoke (acute) (chronic)
CPT/HCPCS: 31500; 36415; 36600; 71045; 80053; 82550; 82553; 82803; 83605; 83880; 84484; 85025; 85610; 85730; 87040; 87070; 87081; 87205; 92950; 93005; 93306; 94002; 94003; 94640; 96365; 96366; 99291; J0171

== ENCOUNTER 2019-04-10 17:05 | Inpatient (IN) | payer MEDICARE, MEDICAID ==
[~2019-04-10] VITALS: Ht 167.6 cm; Wt 62.4 kg
--- NOTE | 2019-04-10 17:05 | NUR ---
ED Nurse Note: patient brought in by ambulance RA 34, patient called [facility] because she felt weak and dehydrated ,reports very limited oral intake reports 2MI 2 weeks ago, 4 stents placed, patient is alert awake
--- NOTE | 2019-04-10 17:06 | NUR ---
ED Nurse Note: pt states she takes 9 meds at home but unable to recall.
[2019-04-10 17:21] VITALS: BP 117/52
[2019-04-10 18:05] LABS: BASOPHILS % (AUTO) 1.1 % (0.0-2.0); EOSINOPHILS % (AUTO) 3.5 % (0.0-3.0); HEMATOCRIT 43.5 % (37.0-47.0); HEMOGLOBIN 13.7 G/DL (12.0-16.0); LYMPHOCYTES % (AUTO) 31.9 % (20.0-45.0); MEAN CORPUSCULAR VOLUME 90 FL (80-99); NEUTROPHILS % (AUTO) 57.6 % (45.0-75.0); PLATELET COUNT 163 K/UL (150-450); RED BLOOD COUNT 4.84 M/UL (4.20-5.40); RED CELL DISTRIBUTION WIDTH 12.9 % (11.6-14.8); WHITE BLOOD COUNT 5.1 K/UL (4.8-10.8)
[2019-04-10 18:17] LABS: ANION GAP 11 mmol/L (5-15); BLOOD UREA NITROGEN 9 mg/dL (7-18); CALCIUM 9.2 MG/DL (8.5-10.1); CARBON DIOXIDE 27 MMOL/L (21-32); CHLORIDE 110 MMOL/L (98-107); POTASSIUM 3.4 MMOL/L (3.5-5.1); SODIUM 148 MMOL/L (136-145)
[2019-04-10 18:31] LABS: ALANINE AMINOTRANSFERASE 29 U/L (12-78); ALBUMIN/GLOBULIN RATIO 0.9 (1.0-2.7); ALKALINE PHOSPHATASE 105 U/L (46-116); ASPARTATE AMINO TRANSFERASE 46 U/L (15-37); BILIRUBIN,TOTAL 0.4 MG/DL (0.2-1.0); CKMB 1.9 NG/ML (0.0-3.6); CREATINE KINASE 168 U/L (26-308)
--- NOTE | 2019-04-10 19:01 | NUR ---
ED Nurse Note: [facility] SENT TO LAB
--- NOTE | 2019-04-10 19:10 | NUR ---
HAND-OFF: Report given to Lenora RAMIREZ patient is stable in bed, connected to cardiac nurse .
--- NOTE | 2019-04-10 19:13 | Diagnostic Imaging Report ---
EXAM: XR Chest, 1 View CLINICAL HISTORY: SOB TECHNIQUE: Frontal view of the chest. COMPARISON: 02/10/2019 FINDINGS: Lungs: Low lung volumes with bronchovascular crowding. No consolidation, pleural effusion, or pneumothorax. If there is persistent clinical concern, recommend PA and lateral radiographs. Pleural space: See above. Heart: Unremarkable. No cardiomegaly. Mediastinum: Unremarkable. Bones/joints: Multiple right-sided prior rib fractures again seen. Tubes, lines and devices: Visualization of chest somewhat limited due to overlying support apparatus. Other findings: Interval extubation. IMPRESSION: 1. Interval extubation. 2. Low lung volumes with bronchovascular crowding. 3. Visualization of chest somewhat limited due to overlying support apparatus. 4. No consolidation, pleural effusion, or pneumothorax. If there is persistent clinical concern, recommend PA and lateral radiographs. 5. Multiple right-sided prior rib fractures again seen.
[2019-04-10 19:22] LABS: APPEARANCE,URINE CLEAR; BILIRUBIN, URINE NEGATIVE (NEGATIVE); COLOR,URINE PALE YELLOW; GLUCOSE, URINE (UA) NEGATIVE (NEGATIVE); KETONES,URINE NEGATIVE (NEGATIVE); LEUKOCYTE ESTERASE ,URINE NEGATIVE (NEGATIVE); NITRITE,URINE NEGATIVE (NEGATIVE); PH,URINE 5 (4.5-8.0); PROTEIN,URINE NEGATIVE (NEGATIVE); UROBILINOGEN,URINE NORMAL MG/DL (0.0-1.0)
--- NOTE | 2019-04-10 19:42 | NUR ---
ED Nurse Note: Pt's garcia was counted with myself, security and nursing sup. Pt is keeping $[phone] garcia in [facility] [place]. Valuables bag # [id number] (1of 1)
--- NOTE | 2019-04-10 20:19 | Emergency Room Report ---
History of Present Illness General Chief Complaint: Generalized Weakness Source: Patient, EMS Present Illness HPI 69-year-old female presents ED for evaluation. Patient brought in by EMS from store. States she is feeling weak today. History of DE and CHF. States she feels somewhat short of breath. Notes leg swelling. States she is currently wearing a laboratory monitor. Denies chest pain. Denies fevers or chills. No other aggravating relieving factors. Denies any other associated symptoms Allergies: Coded Allergies: No Known Allergies (Unverified , 04/10/19) UNABLE TO ASSESS (Unverified , 02/10/19) Patient History Past Medical History: HTN, DE, CAD Past Surgical History: none Pertinent Family History: none Social History: Denies: smoking, alcohol use, drug use Now: No Immunizations: UTD Reviewed Nursing Documentation: PMH: Agreed; PSxH: Agreed Nursing Documentation-PMH Hx Cardiac Problems: Yes - 2 mi and 4 stents Hx Hypertension: Yes Hx Cancer: No Hx Neurological Problems: No Hx Syncope: Yes Review of Systems All Other Systems: negative except mentioned in HPI Physical Exam Vital Signs Date Time Temp Pulse Resp B/P (MAP) Pulse Ox O2 Delivery O2 Flow Rate FiO2 04/10/19 16:58 98.1 78 18 110/69 (83) 99 Room Air Sp02 EP Interpretation: reviewed, normal General Appearance: no apparent distress, alert, GCS 15, non-toxic Head: normocephalic, atraumatic Eyes: bilateral eye normal inspection, bilateral eye PERRL ENT: hearing grossly normal, normal pharynx, no angioedema, normal voice Neck: full range of motion, supple/symm/no masses Respiratory: chest non-tender, lungs clear, normal breath sounds, speaking full sentences Cardiovascular #1: regular rate, rhythm, no edema Cardiovascular #2: 2+ carotid (R), 2+ carotid (L), 2+ radial (R), 2+ radial (L) , 2+ dorsalis pedis (R), 2+ dorsalis pedis (L) Gastrointestinal: normal bowel sounds, non tender, soft, non-distended, no guarding, no rebound Rectal: deferred Genitourinary: normal inspection, no CVA tenderness Musculoskeletal: back normal, gait/station normal, normal range of motion, swelling - 2+ pitting edema Neurologic: alert, oriented x3, responsive, motor strength/tone normal, sensory intact, speech normal Psychiatric: judgement/insight normal, memory normal, mood/affect normal, no suicidal/homicidal ideation Reflexes: 3+ bicep (R), 3+ bicep (L), 3+ tricep (R), 3+ tricep (L), 3+ knee (R) , 3+ knee (L) Lymphatic: no adenopathy Medical Decision Making Diagnostic Impression: Primary Impression: Episode of generalized weakness Additional Impression: CHF (congestive heart failure) Qualified Codes: I50.9 - Heart failure, unspecified ER Course Hospital Course 69-year-old female presents ED complaining of shortness of breath, weakness, leg swelling Differential diagnoses include: DE/unstable angina, contusion, muscle strain, PTX, rib fracture Clinical course Patient placed on stretcher. on laboratory monitor. After initial history and physical I ordered labs, EKG, chest x-ray labs reviewed- no leukocytosis, hemoglobin/hematocrit stable, Na 148, Trop 0.033 , BNP > 6000 EKG - NSR, flattened twaves in lateral leads. twave inversions in inferior leads Chest x-ray- cardiomegaly Lasix given. On last presentation patient was here for shortness of breath. Ultimately placed on BiPAP and patient coded requiring intubation. Patient had repeat EKG which was concerning for ST elevation DE and was subsequently transferred to [facility]. Patient is resting comfortably and does not appear to be in distress. Vitals stable. Case discussed with Dr. Zabala and he agreed to accept the patient to his service for further care and support I. I feel this is a highly complex case requiring extensive working including EKG/Rhythm strip, Xray/CT/US, Blood/urine lab work, repeat exams while in ED, and administration of strong opiates/narcotics for pain control, admission to hospital or close patient follow up. Diagnosis - CHF exacerbation, weakness admitted to telemetry in serious condition Labs Test 04/10/19 17:20 04/10/19 18:48 White Blood Count 5.1 K/UL (4.8-10.8) Red Blood Count 4.84 M/UL (4.20-5.40) Hemoglobin 13.7 G/DL (12.0-16.0) Hematocrit 43.5 % (37.0-47.0) Mean Corpuscular Volume 90 FL (80-99) Mean Corpuscular Hemoglobin 28.3 PG (27.0-31.0) Mean Corpuscular Hemoglobin Concent 31.4 G/DL (32.0-36.0) Red Cell Distribution Width 12.9 % (11.6-14.8) Platelet Count 163 K/UL (150-450) Mean Platelet Volume 6.5 FL (6.5-10.1) Neutrophils (%) (Auto) 57.6 % (45.0-75.0) Lymphocytes (%) (Auto) 31.9 % (20.0-45.0) Monocytes (%) (Auto) 6.0 % (1.0-10.0) Eosinophils (%) (Auto) 3.5 % (0.0-3.0) Basophils (%) (Auto) 1.1 % (0.0-2.0) Sodium Level 148 MMOL/L (136-145) Potassium Level 3.4 MMOL/L (3.5-5.1) Chloride Level 110 MMOL/L (98-107) Carbon Dioxide Level 27 MMOL/L (21-32) Anion Gap 11 mmol/L (5-15) Blood Urea Nitrogen 9 mg/dL (7-18) Creatinine 1.0 MG/DL (0.55-1.30) Estimat Glomerular Filtration Rate 54.8 mL/min (>60) Glucose Level 125 MG/DL (74-106) Calcium Level 9.2 MG/DL (8.5-10.1) Total Bilirubin 0.4 MG/DL (0.2-1.0) Aspartate Amino Transf (AST/SGOT) 46 U/L (15-37) Alanine Aminotransferase (ALT/SGPT) 29 U/L (12-78) Alkaline Phosphatase 105 U/L (46-116) Total Creatine Kinase 168 U/L (26-308) Creatine Kinase MB 1.9 NG/ML (0.0-3.6) Creatine Kinase MB Relative Index 1.1 Troponin I 0.033 ng/mL (0.000-0.056) Pro-B-Type Natriuretic Peptide 6096 pg/mL (0-125) Total Protein 6.3 G/DL (6.4-8.2) Albumin 3.0 G/DL (3.4-5.0) Globulin 3.3 g/dL Albumin/Globulin Ratio 0.9 (1.0-2.7) Urine Color Pale yellow Urine Appearance Clear Urine pH 5 (4.5-8.0) Urine Specific [place] 1.010 (1.005-1.035) Urine Protein Negative (NEGATIVE) Urine Glucose (UA) Negative (NEGATIVE) Urine Ketones Negative (NEGATIVE) Urine Blood Negative (NEGATIVE) Urine Nitrite Negative (NEGATIVE) Urine Bilirubin Negative (NEGATIVE) Urine Urobilinogen Normal MG/DL (0.0-1.0) Urine Leukocyte Esterase Negative (NEGATIVE) EKG Diagnostic Results Rate: normal Rhythm: NSR ST Segments: no acute changes ASA given to the pt in ED: No Rhythm Strip Diag. Results EP Interpretation: yes Rhythm: NSR, no PVC's, no ectopy Chest X-Ray Diagnostic Results Chest X-Ray Diagnostic Results : Chest X-Ray Ordered: Yes # of Views/Limited/Complete: 1 View Indication: Shortness of Breath EP Interpretation: Yes Interpretation: no consolidation, no effusion, no pneumothorax, no acute cardiopulmonary disease Impression: No acute disease Electronically Signed by: Electronically signed by Fitz Goyal MD Last Vital Signs Date Time Temp Pulse Resp B/P (MAP) Pulse Ox O2 Delivery O2 Flow Rate FiO2 04/10/19 17:22 77 22 Room Air 04/10/19 17:21 98.1 117/52 99 Status: improved Disposition: ADMITTED INPATIENT Condition: Serious Referrals: NOT CHOSEN IPA/,REFERRING (PCP) Fitz Goyal MD Apr 10, 2019 20:19
--- NOTE | 2019-04-10 20:40 | NUR ---
TRANSFER TO FLOOR: Patient transferred to as ordered, per Dr Zabala. Report given to ASHLEY Wheatley. Belongings and medications given to . Family and or S/O informed of transfer.
[2019-04-10 21:00] VITALS: BP 116/66
--- NOTE | 2019-04-10 21:15 | NUR ---
NURSE NOTES: Received patient and report from ASHLEY Cooley from ED via [employer]. Patient awake showing no signs of acute distress. Denies any pain or discomfort. Respiration even and non labored on room air. No SOB noted. No chest pain. patient c/o being weak and needs assistance when going to the bathroom. Pt. came in with personal scale installer and kept on bedside. Floor scale installer is on showing sinus rhythm. VS stable. AOx4. Oriented to room. Bed in lowest position, and wheels locked. Call light within reach. Called and spoke with Dr. Sheron Zabala for admission orders. Orders provided, noted and carried out.
[2019-04-10] MEDS ORDERED: Milk of Magnesia 30ml Ud ORAL PRN (21:45)
[2019-04-11] VITALS: BP 112/66
[2019-04-11 04:00] VITALS: BP 105/61
[2019-04-11 07:02] LABS: ANION GAP 13 mmol/L (5-15); BLOOD UREA NITROGEN 9 mg/dL (7-18); CALCIUM 9.5 MG/DL (8.5-10.1); CARBON DIOXIDE 27 MMOL/L (21-32); CHLORIDE 106 MMOL/L (98-107); CHOLESTEROL 123 MG/DL (< 200); CREATININE 0.9 MG/DL (0.55-1.30); HDL CHOLESTEROL 49 MG/DL (40-60); POTASSIUM 3.5 MMOL/L (3.5-5.1); SODIUM 146 MMOL/L (136-145); TRIGLYCERIDES 63 MG/DL (30-150)
--- NOTE | 2019-04-11 07:47 | NUR ---
HAND-OFF: Report given to ASHLEY Camp.
[2019-04-11 08:00] VITALS: BP 120/63
--- NOTE | 2019-04-11 08:00 | NUR ---
pt in bed having breakfast AOx4. Pt on cardiac nurse practitioner no signs of cardiac or respiratory distress. Bed in lowest position and locked. Call light next to pt. Will continue to monitor and follow plan of care.
[2019-04-11] MEDS: Heparin 5000 units/ml inj SUBQ SCH ×2 (09:00→20:56)
--- NOTE | 2019-04-11 10:59 | NUR ---
CASE MANAGEMENT: INITIAL REVIEW 69 YO F LIZBETH FROM HOME CC: GEN WEAKNESS. PMHx: HTN. [place]. CAD. SI:WEAKNESS. ACS. T 98.1 HR 78 RR 18 B/P 110/69 SATS 99% ON RA NA 148 K 3.4 CL 110 GLU 125 AST 46 BNP 6096 IS: CXR IMPRESSION: 1. Interval extubation. 2. Low lung volumes with bronchovascular crowding. 3. Visualization of chest somewhat limited due to overlying support apparatus. 4. No consolidation, pleural effusion, or pneumothorax. If there is persistent clinical concern, recommend PA and lateral radiographs. 5. Multiple right-sided prior rib fractures again seen. PATIENT ADMITTED TO TELE 04/10/2019 @ 1847 DCP: PATIENT TO BE DISCHARGED TO HOME ONCE MEDICALLY CLEARED. PLAN OF CARE: CARDIO EVAL 04/11/2019 SI:WEAKNESS. ACS. T 98.1 HR 78 RR 22 B/P 120/63 SATS 96% ON RA NA 146 GLU 145 IS: ASA PO QD LASIX IV QD TELE STATUS DCP: PATIENT TO BE DISCHARGED TO HOME ONCE MEDICALLY CLEARED. PLAN OF CARE: CARDIO EVAL >> PENDING Addendum: 04/11/19 at 1108 by Ana Espinoza CM INTERQUCARLOS DAVIS
--- NOTE | 2019-04-11 11:05 | NUR ---
INSURANCE NO B/AR INDICATION WHERE TO FAX REVIEWS
[2019-04-11 12:00] VITALS: BP 115/67
--- NOTE | 2019-04-11 14:44 | History & Physical ---
History and Physical History & Physicial HP dictated # [id number] Serge Zabala MD Apr 11, 2019 14:44
[2019-04-11 16:00] VITALS: BP 114/62
--- NOTE | 2019-04-11 16:15 | History and Physical Report ---
DATE OF ADMISSION: 04/10/2019 CHIEF COMPLAINT: Shortness of breath, chest pain. HISTORY OF PRESENT ILLNESS: This is a 69-year-old transgender male to female [place] who was admitted a couple of months ago here at [place] and then was transferred out to [facility] for cardiac workup. The patient was found to have multiple vessel disease and was not found to be any candidate for bypass surgery. She had high-risk PCI done and was sent to [facility] for rehabilitation; however, she did not stay there and she signed against medical advice right away. She went home and then lost contact. She stated that she got sick again when she went to [facility]. She was there for 2 weeks and was discharged. Yesterday when she was in the [employer], when she started getting short of breath with chest pain and she was brought into the ER here. The patient has severe cardiomyopathy and coronary artery disease. PAST MEDICAL HISTORY: As above. The patient has also history of hypertension. MEDICATIONS: Reviewed in the [facility]. It is unclear if she was taking her medications although she stated that she was taking 9 medications prescribed from [facility]. She lives with a male partner. PHYSICAL EXAMINATION: VITAL SIGNS: Blood pressure 110/69, pulse 78, respirations 18, temperature 98.1. HEENT: [place] conjunctivae. Anicteric sclerae. NECK: Supple. LUNGS: Clear to auscultation. HEART: S1, S2 without murmurs, rubs. ABDOMEN: Soft, nontender. EXTREMITIES: No cyanosis, edema. LABORATORY FINDINGS: The CBC shows WBC of 5100, hematocrit is 43.5, hemoglobin is 13.7, platelets 163,000. Chemistry panel shows a sodium 146, potassium 3.5, chloride 106, BUN is 9, creatinine 0.9, blood sugar is 145. Troponin was negative x2. LDL was 60. ASSESSMENT: This is a 69-year-old transgender female who has significant coronary artery disease and also severe cardiomyopathy. She was admitted with symptoms of heart failure and possibly angina. She is doing better now. PLAN: The patient will be diuresed. Labs will be followed. Adjustment will be made in the patient's medications and hopefully we can discharge her tomorrow. Serge Zabala M.D. DR: LOI JOB#: [id number] CC:
--- NOTE | 2019-04-11 19:46 | NUR ---
HAND-OFF: Report given to Elidia RAMIREZ.
[2019-04-11 20:00] VITALS: BP 126/67
--- NOTE | 2019-04-11 20:00 | NUR ---
NURSE NOTES: received pt from ASHLEY Camp. pt in bed, no acute distress noted, bed locked and lowest position, side rail up x2, call light and personal belonging within reach. will continue to monitor for any change in condition.
--- NOTE | 2019-04-11 21:45 | Cardiology Report ---
APPROVED REPORT EKG Measurement Heart [id number] Normal sinus rhythm Left axis deviation Septal infarct, age undetermined Abnormal ECG
[2019-04-12] VITALS: BP 120/66
--- NOTE | 2019-04-12 | NUR ---
NURSE NOTES: pt in bed sleeping. no change in condition. no s/s of pain. will continue to monitor.
--- NOTE | 2019-04-12 04:00 | NUR ---
NURSE NOTES: pt sleeping, no change in condition. will continue to monitor for change in condition.
--- NOTE | 2019-04-12 06:45 | NUR ---
NURSE NOTES: pt remains stable, no change in condition. all needs met during my shift. bed locked and lowest position, bedside rail up x2, belonging and call light within reach. will endorse pt to incoming nurse.
--- NOTE | 2019-04-12 07:26 | NUR ---
HAND-OFF: Report given to ASHLEY Villegas.
--- NOTE | 2019-04-12 07:26 | NUR ---
received pt from ASHLEY Mckinnon. pt resting in bed with open eyes, no acute distress noted, bed locked, at lowest position, side rail up x2, call light, personal belonging and frequent used objects are within reach. will continue to monitor.
[2019-04-12 08:14] VITALS: BP 120/61
[2019-04-12] MEDS: Heparin 5000 units/ml inj SUBQ SCH (08:52)
--- NOTE | 2019-04-12 11:29 | NUR ---
CASE MANAGEMENT:REVIEW 04/12/19 SI: ACS CAD. SEVERE CARDIOMYOPATHY. POSSIBLY ANGINA 98.1 81 18 120/61 96% ON RA IS: ASA PO QD IV LASIX QD HEPARIN SQ Q12 : TELEMETRY STATUS DCP: FROM HOME
--- NOTE | 2019-04-12 11:34 | NUR ---
DISCHARGE PLANNING PLAN IS FOR PATIENT TO POSSIBLY RETURN HOME TODAY WAITING FOR DR SCOTT TO ARRIVE
[2019-04-12 12:00] VITALS: BP 115/62
--- NOTE | 2019-04-12 13:22 | NUR ---
INSURANCE NO INSURANCE INFORMATION IN BAR UNABLE TO SEND CLINICALS OR REVIEWS
--- NOTE | 2019-04-12 14:13 | Cardiology Progress Note ---
Assessment/Plan Assessment/Plan [id number] Objective Last 24 Hour Vital Signs Date Time Temp Pulse Resp B/P (MAP) Pulse Ox O2 Delivery O2 Flow Rate FiO2 04/12/19 12:00 98.3 76 18 115/62 (79) 96 04/12/19 09:17 Room Air 04/12/19 08:14 98.1 81 18 120/61 (80) 96 04/12/19 08:00 80 04/12/19 04:00 75 04/12/19 00:00 74 04/12/19 00:00 98.6 76 18 120/66 (84) 95 04/11/19 21:00 Room Air 04/11/19 20:00 75 04/11/19 20:00 98.7 86 18 126/67 (86) 99 04/11/19 16:00 73 04/11/19 16:00 97.2 77 20 114/62 (79) 98 Intake and Output 04/11/19 04/12/19 19:00 07:00 Intake Total 580 ml 400 ml Output Total 2 ml Balance 580 ml 398 ml Intake Oral 580 ml 400 ml Output Urine Total 2 ml Carlos Martinez MD Apr 12, 2019 14:13
[2019-04-12] MEDS ORDERED: PLAVIX75 MG ORAL (14:53)
[2019-04-12] MEDS ORDERED: DEMADEX10 MG IV (14:53)
[2019-04-12] MEDS ORDERED: LIPITOR80 MG ORAL (14:53)
[2019-04-12] MEDS ORDERED: ASPIRIN325 MG ORAL (14:53)
[2019-04-12 16:00] VITALS: BP 120/87
--- NOTE | 2019-04-12 17:52 | CDS Physician Query ---
Clarification is required for compliance, coding accuracy, and to reflect severity of illness for this patient Dear Dr. Medrano Date: _04/12/19 CDS Name: Darwin Clinical presentation: 69-year-old transgender male, Yesterday when she was in the [employer], when she started getting short of breath with chest pain and she was brought into the ER here. The patient has severe cardiomyopathy and coronary artery disease. VITAL SIGNS: Blood pressure 110/69, pulse 78, respirations 18, temperature 98.1. Labs:sodium 146, potassium 3.5, chloride 106, BUN is 9, creatinine 0.9, blood sugar is 145. Troponin was negative x2, BNP > 6000 EKG - NSR, flattened twaves in lateral leads. twave inversions in inferior leads PLAN: The patient will be diuresed. Labs will be followed. Please respond to the following question: Is there a diagnosis specific to these symptoms or values? If so please state below. PHYSICIAN RESPONSE: [ x ] Hypernatremia [ ] Clinically insignificant lab result [ ] Other, Please specify [ ]Unable to determine Present on Admission: [] Yes [] No [] Clinically Undetermined Physician signature Date Please also document in your Progress Notes and/or Discharge Summary and indicate if the condition was present on admission. ROMID
--- NOTE | 2019-04-12 18:07 | NUR ---
patient discharged with all her belonging. vital signs stable no c/o pain or SOB.
--- NOTE | 2019-04-12 21:45 | Consultation ---
DATE OF CONSULTATION: 04/12/2019 CARDIOLOGY CONSULTATION CONSULTING PHYSICIAN: Carlos Martinez M.D. REFERRING PHYSICIAN: Serge Zabala M.D. REASON FOR REFERRAL: History of coronary artery disease. HISTORY OF PRESENT ILLNESS: The patient is a 69-year-old transgender female who presents to the hospital because of episodes of fevers and headache that occurred while she was out shopping. She really did not have any chest pain or pressure. There is no PND. No orthopnea. No palpitations. No tightness, heaviness, or discomfort in the chest. She does use two pillows while watching TV. She feels better already and she wants to go home. She was admitted to the hospital because of possible congestive heart failure and has been treated and is ready to go home. PAST MEDICAL HISTORY: Positive for history of prior hospitalization here for which she ended up having myocardial infarction and subsequently was transferred to [facility] because of congestive heart failure and respiratory failure therefore which she was initially intubated and subsequently extubated, pulmonary edema, and renal failure. She was subsequent transferred to [facility] where she was noted to have severe coronary artery disease, not a coronary artery bypass graft candidate, high risk PCI to the left main to the LAD and was at that time had atherectomy and drug-eluting stents placed with covered stents from the left main to mid LAD with Impella support which eventually she did fine. She did however have significant findings of congestive heart failure and eventually was treated and discharged to convalescent facility. She had a shock liver at that time. She had thrombocytopenia, hypotension, and her past medical history also include a transgender with difficult for Chance catheter placement on prior evaluations. ALLERGIES: She has no known drug allergies. SOCIAL HISTORY: She lives with common-law for more than 40 years. She is a secondhand smoker. No history of drug use or alcohol. REVIEW OF SYSTEMS: GASTROINTESTINAL: She denies any nausea, vomiting, diarrhea, or constipation. GENITOURINARY: Negative. PULMONARY: Occasional coughing or wheezing. CONSTITUTIONAL: Fever episode that she had. NEUROLOGIC: Otherwise negative. PHYSICAL EXAMINATION: GENERAL: Shows to be an elderly female, in no respiratory distress. LUNGS: She does have some crackles bilaterally. CARDIAC: Regular rate and rhythm. No heaves, thrills, or gallops noted. ABDOMEN: Soft, nontender. Positive bowel sounds. EXTREMITIES: A 1+ edema. LABORATORY AND DIAGNOSTIC DATA: Electrocardiogram shows sinus rhythm, normal QRS axis, depression II, III, AVF. Telemetry shows sinus rhythm. White count 5.1, hemoglobin 13.7, platelet count of 163. Sodium is 148 at time of admission, now 146, potassium 3.5, chloride 106, bicarb 27, BUN 13, creatinine 0.9, glucose 165. Calcium is 9.5. Two sets of cardiac enzymes are all negative. Liver function tests were normal. ProBNP of 6000 with albumin at 3. Total cholesterol 123 with LDL of 60 and HDL of 49. Urinalysis was fairly unremarkable. Chest x-ray was performed on 04/10/2019 that showed no evidence of significant abnormalities. ASSESSMENT AND PLAN: 1. Coronary artery disease, status post high-risk stent being placed in an left main to LAD. The patient does have right coronary artery. 2. Acute on chronic congestive heart failure. 3. History of cardiopulmonary arrest. 4. History of severe cardiomyopathy. 5. History of myocardial infarction. 6. History of shock liver. 7. Thrombocytopenia. Dr. Zabala, this patient was seen in cardiac consultation. The patient does not have any chest pain or shortness of breath. She needs to be compliant with medication. Dual antiplatelet therapy was started at [facility] with Plavix as well as aspirin to be continued as well as diuretics Lasix 40 mg and Lipitor 80 mg is . I discussed the patient importance of taking those medications. Today, she feels fine. Does not have any shortness of breath. She is very anxious to go home today. Her cardiac enzymes are negative. She will need to have a follow-up that she understands that within the next week or two in my office. I will subsequently arrange for needed possible repeated cardiac catheterization and other blood vessel right coronary artery that was remaining. She will also have I guess an echocardiogram when she returns. I have discussed with the patient importance of being compliant with those medications and she understands that. She would be followed up in the office. Carlos Martinez M.D. DR: Cherelle JOB#: [id number] CC:
--- NOTE | 2019-04-13 20:17 | Discharge Summary ---
Discharge Summary Discharge Summary _ DATE OF ADMISSION: 04/10/2019 DATE OF DISCHARGE: 04/12/2019 DISCHARGED BY: Dr. Zabala REASON FOR ADMISSION: 69 years old transgender female with past medical history of hypertension, coronary artery disease, myocardial infarction, status post 4 stents placement, was brought by EMS. Patient reported feeling weak and somewhat short of breath. She noted leg swelling, but denied chest pain. She denied fever and chills. Upon evaluation vital signs were stable. Laboratory work-up revealed no leukocytosis, stable hemoglobin and hematocrit. Sodium 148. Potassium 3.4. Glucose 125. BUN 9, creatinine 1.0. Troponin 0.033. Pro BNP 6096. EKG revealed normal sinus rhythm, no acute ischemic changes. T wave inversions noted in inferior lateral leads. Urinalysis revealed no evidence of UTI. Chest x-ray revealed no acute cardiopulmonary pathology. Patient received Lasix in emergency department and admitted to telemetry floor for further evaluation and management. CONSULTANTS: fiber optic technician Dr. Martinez [facility] COURSE: Patient admitted to telemetry floor. Patient started on diuresis with close monitoring of volumes and cardiorenal parameters. Website Developer followed. Serial troponin were negative. EKG revealed no acute ischemic changes. Patient was ruled out for acute MO. Lipid panel was stable. Antiplatelet therapy with aspirin and statin continued. DVT prophylaxis provided. Renal parameters and electrolytes were closely monitored . Potassium was replaced . Pulse oximetry was stable on room air. Patient was anxious to leave the hospital. Importance of adherence to cardiac medication was stressed with patient. Patient will follow-up with her fiber optic technician as outpatient in 1 to 2 weeks. Patient will have at that time echocardiogram. In addition, fiber optic technician will arrange for possible repeated cardiac catheterization. Plan of care was discussed with the patient, who understood importance of compliance with medication and treatment. FINAL DIAGNOSES: Acute on chronic congestive heart failure Coronary artery disease, status post PTCA History of severe cardiomyopathy History of myocardial infarction History of cardiopulmonary arrest DISCHARGE MEDICATIONS: See Medication Reconciliation list. DISCHARGE INSTRUCTIONS: Patient was discharged home . Follow up with fiber optic technician in one -two weeks. I have been assigned to dictate discharge summary for this account. I was not involved in the patient's management. Solange Bowles NP Apr 13, 2019 20:17
--- NOTE | 2019-04-14 11:30 | NUR ---
CASE MANAGEMENT: CM review and clinical information (face sheet/ ER MD notes/ H&P) faxed to [facility] @ [phone]
--- NOTE | 2019-04-15 10:34 | NUR ---
INSURANCE DENIAL FAX RECEIVED, RESENT ADDITIONAL INFORMATION REQUESTED [facility] FX: [phone] PH: [phone] PLEASE FAX THE REVIEW AND CLINICALS
--- NOTE | 2019-04-15 14:25 | NUR ---
INSURANCE 04/12/19 CLINICALS and REVIEW HAVE BEEN FAXED TO: [facility] FX: [phone] PH: [phone]
== END 2019-04-12 18:05 | disposition home or self-care (01) | DRG 194 ==
LOC: EDBD 17:05 → EMR 17:58 → 2E 18:47 → EDBEDREQ 20:16 → 2E 04-11 12:46
DX: I11.0 Hypertensive heart disease with heart failure (principal); D69.6 Thrombocytopenia, unspecified; E87.0 Hyperosmolality and hypernatremia; I42.9 Cardiomyopathy, unspecified; I25.119 Atherosclerotic heart disease of native coronary artery with unspecified angina pectoris; I50.9 Heart failure, unspecified; I25.2 Old myocardial infarction; Z95.5 Presence of coronary angioplasty implant and graft; Z86.74 Personal history of sudden cardiac arrest
CPT/HCPCS: 36415; 71045; 80048; 80053; 80061; 81003; 82550; 82553; 83880; 84484; 85025; 87081; 93005; 99285; J8499